=== PATIENT | male | born 1955 | race Caucasian/White ===

== ENCOUNTER 2016-12-28 13:29 | Observation (INO) | payer OTHER ==
[2016-12-28] MEDS ORDERED: NORVASC10 M2 PO (14:13)
[2016-12-28] MEDS ORDERED: SYNTHROID150 MC1 PO (14:13)
[2016-12-28] MEDS ORDERED: COZAAR100 M1 PO (14:13)
[2016-12-28] MEDS ORDERED: HYDROCHLOROTHIA25 M1 PO (14:14)
[2016-12-28] MEDS ORDERED: ASPIRIN325 M3 PO (14:14)
[2016-12-28] MEDS ORDERED: CELEBREX200 M1 PO (14:14)
[2016-12-28] MEDS ORDERED: CLARITIN10 M6 PO (14:14)
[2016-12-28] MEDS ORDERED: ROCALTROL0.25 MC1 PO (14:15)
[2016-12-28] MEDS ORDERED: MUCINEX600 M1 PO (14:15)
[2016-12-28] MEDS ORDERED: CALCIUM 600 +1 EA13 PO (14:16)
[2016-12-28 14:39] LABS: BASO % 0.2 % (0-2); EOS % 0.2 % (0-7); HGB-HEMOGLOBIN 14.8 gm/dl (13.5-17.0); IMMATURE GRANULOCYTES ABSOLUTE 0.18 tho/cmm (0-0.03); IMMATURE GRANULOCYTES PERCENT 1.5 % (0-0.3); LYMPH % 12.2 % (20-45); LYMPH ABSOLUTE COUNT 1.5 tho/cmm (0.8-4.5); MCH (MEAN CORPUSCULAR HGB) 28.8 pg (28.0-32.0); MCHC MEAN CORPUSCULAR HGB CONC 34.4 % (32.0-36.0); MCV (MEAN CELL VOLUME) 83.8 fl (82.0-96.0); MEAN PLATELET VOLUME 9.6 cmc (9.4-12.4); MONO % 6.1 % (0-12); MONOCYTE ABSOLUTE COUNT 0.7 tho/cmm (0.0-1.2); NEUTROPHIL ABSOLUTE COUNT 9.7 tho/cmm (1.6-8.0); NEUTROPHIL-AUTOMATED 9.7 tho/cmm (1.6-8.0); NEUTROPHILS % 79.8 % (40-80); PLATELET COUNT 263 tho/cmm (150-450); RED BLOOD COUNT 5.13 mil/cmm (4.40-5.70); WHITE BLOOD COUNT 12.2 tho/cmm (4.0-10.0)
[2016-12-28 14:44] LABS: PROTHROMBIN TIME 11.1 SECONDS (9.0-13.6)
[2016-12-28 14:52] LABS: ANION GAP 12 mmol/L (0-20); BLOOD UREA NITROGEN 15 mg/dl (6-24); CARBON DIOXIDE-VENOUS 29 mmol/L (22-32); CHLORIDE 104 mmol/l (96-110); CREATININE 1.09 mg/dl (0.60-1.30); GLUCOSE 114 mg/dL (70-110); POTASSIUM 3.7 mmol/L (3.7-5.1); SODIUM 141 mmol/L (135-145); eGFR VALUE FOR BLACK 83 mL/Min
[2016-12-30] MEDS ORDERED: KEFLEX500 M4 PO (08:33)
[2016-12-30] MEDS ORDERED: PROMETHAZINE12.5 M2 PO (08:42)
== END 2016-12-30 11:36 ==
LOC: SHSB 13:29 → ORE 15:42 → PACU 16:41 → 5EB 17:20
PROVIDERS: Anesthesiology; ADMIT Orthopaedic Surgery Foot and Ankle Surgery
PROC: 0SBC4ZZ Excision of Right Knee Joint, Percutaneous Endoscopic Approach (ICD-10-PCS; principal; 2016-12-29)
PROC: 0SBC4ZZ Excision of Right Knee Joint, Percutaneous Endoscopic Approach (ICD-10-PCS; 2016-12-29)
DX: M00.9 Pyogenic arthritis, unspecified (principal); S83.281A Other tear of lateral meniscus, current injury, right knee, initial encounter; I10 Essential (primary) hypertension; E66.9 Obesity, unspecified; E89.0 Postprocedural hypothyroidism; K21.9 Gastro-esophageal reflux disease without esophagitis; C73 Malignant neoplasm of thyroid gland; C78.7 Secondary malignant neoplasm of liver and intrahepatic bile duct; Z79.1 Long term (current) use of non-steroidal anti-inflammatories (NSAID); Z79.82 Long term (current) use of aspirin; Z87.442 Personal history of urinary calculi; Z79.899 Other long term (current) drug therapy; Z90.89 Acquired absence of other organs; Z98.890 Other specified postprocedural states; X58.XXXA Exposure to other specified factors, initial encounter
CPT/HCPCS: G0378; G8978-GP-CJ; G8979-GP-CI; G8980-GP-CJ; J0690; J2270; J3370